=== PATIENT | male | born 1970 | race Caucasian/White ===

== ENCOUNTER → 2019-04-12 11:16 | Outpatient (CLI) | payer BC, SELFPAY ==
[2019-04-12 11:17] VITALS: BMI 29.3
[2019-04-12 13:36] LABS: AST(SGOT) 25 U/L (15-37); Alanine Aminotransfer ALT/SGPT 41 U/L (16-61); Albumin, Serum 4.2 g/dL (3.2-5.0); Alkaline Phosphatase 82 U/L (45-117); Bilirubin, Direct 0.23 mg/dL (0.00-0.30); Cholesterol 200 mg/dL (200); Globulin 3.7 g/dL (2.2-4.2); High Density Lipoprotein 61 mg/dL; Protein, Total 7.9 g/dL (6.4-8.2); Triglycerides 136 mg/dL; Very Low Density Lipoprotein 27 mg/dL (5-40)
== END ==
PROVIDERS: PCP Family Medicine; Referring Provider Internal Medicine Cardiovascular Disease; Visit Provider Internal Medicine Cardiovascular Disease
DX: E78.00 Pure hypercholesterolemia, unspecified (principal)
CPT/HCPCS: 36415; 80061; 80076

== ENCOUNTER → 2020-10-24 11:25 | Outpatient (CLI) | payer BC, SELFPAY ==
[2020-10-24 12:10] LABS: AST(SGOT) 21 U/L (15-37); Alanine Aminotransfer ALT/SGPT 35 U/L (16-61); Albumin, Serum 3.9 g/dL (3.2-5.0); Alkaline Phosphatase 78 U/L (45-117); Bilirubin, Direct 0.21 mg/dL (0.00-0.30); Cholesterol 180 mg/dL (200); Globulin 3.7 g/dL (2.2-4.2); High Density Lipoprotein 57 mg/dL; Protein, Total 7.6 g/dL (6.4-8.2); Triglycerides 169 mg/dL; Very Low Density Lipoprotein 34 mg/dL (5-40)
== END ==
PROVIDERS: PCP Family Medicine; Referring Provider Internal Medicine Cardiovascular Disease; Visit Provider Internal Medicine Cardiovascular Disease
DX: E78.00 Pure hypercholesterolemia, unspecified (principal)
CPT/HCPCS: 36415; 80061; 80076

== ENCOUNTER 2021-04-29 15:43 | Outpatient (CLI) | payer BC, SELFPAY ==
[2021-04-29 15:52] LABS: Bacteria 0 SEEN /hpf (None Seen); Mucous, Urine 0 SEEN /hpf (<or=2+); White Blood Cells 0 SEEN /hpf (0-5)
[2021-04-29 17:04] LABS: Hematocrit 41.9 % (40-54); Hemoglobin 14.6 g/dL (13.0-16.5); Mean Corp Hgb Conc 34.8 g/dL (32-36); Mean Corpuscular Hgb 32.8 pg (27.0-32.0); Mean Corpuscular Volume 94.2 fL (80-94); Mean Platelet Vol. 8.8 fl (6.2-12.0); Platelet Count 185 K/mm3 (150-450); RBC Distribution Width SD 41.7 fl (35.1-43.9); Red Blood Count 4.45 M/mm3 (4.6-6.2); White Blood Count 5.2 K/mm3 (4.4-11.0)
[2021-04-29 17:09] LABS: Color, Urine Yellow (Yellow); Glucose, Dipstick Normal (Normal); Ketone-Dipstick Negative (Negative); Leukocyte Esterase-Dipstick Negative /ul (Negative); Nitrite-Dipstick Negative (Negative); Occult Blood-Urine Negative /ul (Negative); Protein-Dipstick Negative (Negative); Specific Gravity, Urine 1.015 (1.002-1.030); Urine Bilirubin Dipstick Negative (Negative); Urine Clarity Clear (Clear); Urine Urobilinogen Normal (Normal); Urine pH 6.5 (5.0 - 8.0)
[2021-04-29 17:12] LABS: Prothrombin Time (Protime)PT. 12.5 SECONDS (11.7-14.9)
[2021-04-29 17:20] LABS: Red Blood Cells-Urine 0-5 SEEN /hpf (0-5); Squamous Epithelial Cells - UA 0-5 SEEN /hpf (0-5)
[2021-04-29 17:25] LABS: Anion Gap 1 (5-15); BUN 22 mg/dL (7-18); BUN/Creat Ratio 19.1 RATIO (10-20); Calcium,Total 8.9 mg/dL (8.5-10.1); Chloride 109 mmol/L (98-107); Creatinine, Serum 1.15 mg/dL (0.70-1.30); EST Glomerular Filtration Rate 71 mL/min (>60); Est Glom Filt Rate - Afr Amer 86 mL/min (>60); Glucose 92 mg/dL (74-106); Potassium 4.3 mmol/L (3.5-5.1); Sodium Level 140 mmol/L (136-145)
== END 2021-04-29 23:59 | disposition home or self-care (01) ==
PROVIDERS: PCP Family Medicine; Referring Provider Internal Medicine Cardiovascular Disease; Visit Provider Internal Medicine Cardiovascular Disease
DX: I49.5 Sick sinus syndrome (principal); R55 Syncope and collapse; Z95.0 Presence of cardiac pacemaker
CPT/HCPCS: 36415; 80048; 81001; 85027; 85610

== ENCOUNTER 2021-04-29 16:11 | Outpatient (CLI) | payer BC, SELFPAY ==
--- NOTE | 2021-04-29 16:18 | RAD_ITS ---
HISTORY: For PPM generator change on 05/10/21. TECHNIQUE: XR Chest 2 Views. # of images incl. paperwork: 2. COMPARISON: None. FINDINGS: CARDIOMEDIASTINAL STRUCTURES: Cardiac silhouette not enlarged. Mediastinal contour unremarkable. Single-lead pacemaker in place LUNGS: Radiographically clear. PLEURA: No pleural effusion or pneumothorax. OSSEOUS STRUCTURES: Small spinal osteophytes seen. RAD/Chest PA and Lateral IMPRESSION: No radiographic evidence of acute cardiopulmonary disease. at 1639 Reported and signed by: Rosa Elizabeth MD Electronically Signed: Rosa Elizabeth MD at 16:38 EST ,
== END 2021-04-29 23:59 | disposition home or self-care (01) ==
LOC: RAD 16:14
PROVIDERS: PCP Family Medicine; Referring Provider Internal Medicine Cardiovascular Disease; Visit Provider Internal Medicine Cardiovascular Disease
DX: Z45.010 Encounter for checking and testing of cardiac pacemaker pulse generator [battery] (principal); I49.5 Sick sinus syndrome; R55 Syncope and collapse
CPT/HCPCS: 71046

== ENCOUNTER 2021-05-10 10:47 | Day surgery (SDC) | payer BC, SELFPAY ==
[2021-05-09 09:35] VITALS: BMI 30.1
[2021-05-10 12:01] LABS: AST(SGOT) 17 U/L (15-37); Alanine Aminotransfer ALT/SGPT 28 U/L (16-61); Albumin, Serum 3.9 g/dL (3.2-5.0); Alkaline Phosphatase 70 U/L (45-117); Bilirubin, Direct 0.23 mg/dL (0.00-0.30); Cholesterol 158 mg/dL (200); Globulin 3.6 g/dL (2.2-4.2); High Density Lipoprotein 54 mg/dL; Protein, Total 7.5 g/dL (6.4-8.2); Triglycerides 93 mg/dL; Very Low Density Lipoprotein 19 mg/dL (5-40)
--- NOTE | 2021-05-13 07:30 | CL.IE_ITS ---
Patient: FORTUNATO LAWSON Study Date: 05/10/2021 Performing: Earl Villegas MD : 1970 Age: 50 Gender: male PROCEDURES PERFORMED LP06-(60639)BATTERY REMOVAL+REPLACEMENT PACER-SINGLE LEAD INDICATIONS Sinoatrial node dysfunction/Sick sinus syndrome PROCEDURE DETAILS The patient was brought to the Catheterization Lab in the postabsorptive nonsedated state. Infor med consent was obtained prior to the procedure. Local anesthetic was given subcutaneously to the le ft upper chest area with Lidocaine 2%. Incision was made to the left upper chest. PPM generator was t hen interrogated by the j2ee programmer. PPM generator was removed. Device pocket was irrigated with antib iotic. PPM generator was attached to the lead(s) and inserted into the pocket. Subcutaneous closure w as completed with 3-0 Vicryl. Skin closure was completed with 4-0 Vicryl. Steri-strips applied to Lt chest area. The patient tolerated the procedure well. Estimated Blood Loss: 20 ml's IMPLANTED / EX-PLANTED DEVICES IMPLANTED DEVICE(S): PPM Generator - Letterer: [employer], Model # [id number] , Serial # [id number] DEVICE PARAMETERS DEVICE PARAMETERS: Mode - VVIR lower rate - 45 upper rate - 130 rate response off Mode- VVIR Lower rate- 45 Upper rate- 130 CONCLUSIONS / RECOMMENDATIONS Device Conclusions: Successful implantation of a single chamber pacemaker battery change and replacem ent Device Recommendations: Follow up with Primary Care Physician PROCEDURE MEDICATIONS Fentanyl 50 mcg IV Versed 1 mg IV Fentanyl 50 mcg IV Versed 1 mg IV Oxygen: 2 L/min via nasal cannula Antibiotic given in appropriate timeframe. Ancef 2 Gm IV @ 05/10/2021 11:48:57 Signed By Earl Villegas MD On 05/13/2021 07:29:40 Earl Villegas MD
== END 2021-05-10 23:59 | disposition home or self-care (01) ==
PROVIDERS: Internal Medicine Cardiovascular Disease; PCP Family Medicine; Referring Provider Internal Medicine Cardiovascular Disease; Visit Provider Internal Medicine Cardiovascular Disease
DX: Z45.010 Encounter for checking and testing of cardiac pacemaker pulse generator [battery] (principal); I49.5 Sick sinus syndrome; R55 Syncope and collapse; E78.5 Hyperlipidemia, unspecified; Z79.899 Other long term (current) drug therapy
CPT/HCPCS: 33227; 36415; 80061; 80076; 99152; 99153; J7040; J7050